=== PATIENT | male | born 1960 | race Caucasian/White ===

== ENCOUNTER 2017-06-03 11:39 | Emergency (ER) | payer BC ==
[2017-06-03 11:44] VITALS: BP 127/73
[2017-06-03] MEDS ORDERED: NEOMYCIN/POLYMYX/DEXAMETH OPHTH DROPS 5 ML RIGHTEYE STA (12:38)
[2017-06-03] MEDS ORDERED: DEXAMETHASONE 10 MG/ML VIAL PO STA (12:38)
--- NOTE | 2017-06-03 12:40 | ED Physician Documentation ---
PD HPI HEENT - Stated complaint Stated Complaint: EYE SWOLLEN/THROAT PX - Chief complaint Chief Complaint: Heent - History obtained from History obtained from: Patient - History of Present Illness Timing - onset: How many weeks ago (1) Timing - duration: Weeks (1) Timing - details: Gradual onset, Still present Location: Throat, Other (right eye) Associated symptoms: Congestion, Rhinorrhea, Cough, Other (sore throat and lost voice.) Similar symptoms before: Diagnosis (conjunctivitis) Recently seen: Not recently seen - Additional information Additional information: 57-year-old male was recently returned from a trip to [facility] he has developed a sore throat and this started about 1 week ago. He has had a bit of a cough with this and he has lost his voice. He feels this is secondary to the travel he has been doing. Yesterday he began to develop redness and irritation to the right eye. He has had this previously to the right eye with a conjunctivitis and this improved with eyedrops he was given here in the emergency department. Review of Systems Constitutional: denies: Fever Eyes: reports: Irritation. denies: Loss of vision, Decreased vision, Photophobia Ears: denies: Ear pain Nose: reports: Rhinorrhea / runny nose, Congestion Throat: reports: Sore throat Cardiac: denies: Chest pain / pressure, Palpitations Respiratory: reports: Cough. denies: Dyspnea GI: denies: Nausea, Vomiting PD PAST MEDICAL HISTORY - Past Surgical History Past Surgical History: No - Present Medications Home Medications: Ambulatory Orders Medication Instructions Recorded Confirmed Azithromycin [Zithromax] 250 mg PO DAILY #6 tablet 06/03/17 - Allergies Allergies/Adverse Reactions: Allergies Allergy/AdvReac Type Severity Reaction Status Date / Time No Known Drug Allergies Allergy Verified 06/03/17 11:44 - Social History Does the pt smoke?: No Smoking Status: Never smoker Does the pt drink ETOH?: Yes Does the pt have substance abuse?: No - Immunizations Immunizations are current?: Yes - POLST Patient has POLST: No PD ED PE NORMAL - Vitals Vital signs reviewed: Yes (normal ) - General General: No acute distress, Well developed/nourished - HEENT HEENT: Atraumatic, PERRL, EOMI, Other (There is mild central inflamation to the right TM and not the left. The right eye is inflamed without exudate. There scleral injection. ) - Neck Neck: Supple, no meningeal sign, No bony TTP - Cardiac Cardiac: RRR, No murmur - Respiratory Respiratory: No respiratory distress, Clear bilaterally - Abdomen Abdomen: Soft, Non tender - Back Back: No CVA TTP, No spinal TTP - Derm Derm: Normal color, Warm and dry, No rash - Extremities Extremities: No deformity, No edema - Neuro Neuro: No motor deficit, No sensory deficit Eye Opening: Spontaneous Motor: Obeys Commands Verbal: Oriented GCS Score: 15 - Psych Psych: Normal mood, Normal affect Results - Vitals Vitals: Vital Signs - 24 hr 06/03/17 11:41 Temperature 36.5 C Heart Rate 61 Respiratory 14 Rate Blood Pressure 127/73 O2 Saturation 98 Oxygen O2 Source Room air PD MEDICAL DECISION MAKING - ED course Complexity details: considered differential, d/w patient ED course: 57-year-old male with a sore throat and otitis also has conjunctivitis in the right eye. He is administered dexamethasone 10 mg here in the emergency department we will place him on some azithromycin and have given him some Maxitrol ophthalmic drops. Departure - Departure Disposition: 01 Home, Self Care Clinical Impression: Conjunctivitis Qualifiers: Conjunctivitis type: acute Acute conjunctivitis type: bacterial Laterality: right Qualified Code(s): H10.31 - Unspecified acute conjunctivitis, right eye Otitis media Qualifiers: Otitis media type: suppurative Chronicity: acute Laterality: right Recurrence: not specified as recurrent Spontaneous tympanic membrane rupture: without spontaneous rupture Qualified Code(s): H66.001 - Acute suppurative otitis media without spontaneous rupture of ear drum, right ear Condition: Stable Instructions: ED Otitis Media Acute Adult, ED Conjunctivitis Bacterial Follow-Up: [facility] [Provider Group] Prescriptions: Azithromycin [Zithromax] 250 mg PO DAILY #6 tablet Comments: Use the eye drops 4 times per day until symptoms resolve. (1-5 days). If symptoms worsen for any reason return here or follow up with your regular doctor.
[2017-06-03] MEDS ORDERED: DEXAMETHASONE 10 MG/ML VIAL ONE (12:48)
[2017-06-03] MEDS ORDERED: CHERRY SYRUP 10 ML UDC PO ONE (12:48)
[2017-06-03] MEDS ORDERED: NEOMYCIN/POLYMYX/DEXAMETH OPHTH DROPS 5 ML ONE (12:48)
== END 2017-06-03 12:58 | disposition home or self-care (01) ==
LOC: ED 11:39
DX: H10.31 Unspecified acute conjunctivitis, right eye (principal); H66.001 Acute suppurative otitis media without spontaneous rupture of ear drum, right ear
CPT/HCPCS: 99283; A9270; J3490

== ENCOUNTER 2020-11-05 21:28 | Emergency (ER) | payer BC ==
[2020-11-05] MEDS ORDERED: TETANUS/DIPHTHERIA/PERTUSSIS 0.5 ML SYRINGE IM ONE (21:57)
[2020-11-05] MEDS ORDERED: BUFFERED LIDOCAINE 10 ML SYRINGE SUBQ STA (21:57)
--- NOTE | 2020-11-05 21:58 | ED Physician Documentation ---
PD HPI UPPER EXT INJURY - Stated complaint Stated Complaint: LT HAND LAC - Chief complaint Chief Complaint: Laceration - History obtained from History obtained from: Patient (Right-handed gentleman not up-to-date on tetanus accidentally cut his left index finger on a knife at home just prior to arrival.) Review of Systems Constitutional: reports: Reviewed and negative Throat: reports: Reviewed and negative Cardiac: reports: Reviewed and negative PD PAST MEDICAL HISTORY - Past Surgical History Past Surgical History: No - Allergies Allergies/Adverse Reactions: Allergies Allergy/AdvReac Type Severity Reaction Status Date / Time No Known Drug Allergies Allergy Verified 11/05/20 21:45 - Social History Does the pt smoke?: No Smoking Status: Never smoker Does the pt drink ETOH?: Yes Does the pt have substance abuse?: No - Immunizations Immunizations are current?: Yes - POLST Patient has POLST: No PD ED PE NORMAL - Vitals Vital signs reviewed: Yes - General General: Alert and oriented X 3, No acute distress - Extremities Extremities: Other (2 cm laceration not involving the nailbed on the pulp of the left index finger with mild distal numbness but incomplete. Too distal for tendon laceration.) - Neuro Neuro: Alert and oriented X 3, Normal speech Results - Vitals Vitals: Vital Signs - 24 hr 11/05/20 21:43 Temperature 36.5 C Heart Rate 70 Respiratory 15 Rate Blood Pressure 139/76 H O2 Saturation 97 Oxygen O2 Source Room air Procedures - Laceration (location) L 2nd finger Length in cm: 2 Wound type: Linear, Into subcut fat Neurovascular status: Sensory intact, Motor intact, Vascular intact Anesthesia: Lidocaine 1%, With bicarb Wound preparation: Irrigated copiously NS Skin layer closure: Nylon, Interrupted, Size #-0 - enter number (5-0), Sutures - enter # (6) Other: Tetanus booster given Departure - Departure Disposition: 01 Home, Self Care Clinical Impression: Laceration Condition: Good Record reviewed to determine appropriate education?: Yes Instructions: ED Laceration Hand Comments: Come back for any signs of infection which would include: Redness, swelling, drainage, increased pain, or fevers. You can wash it soap and water. Keep it covered and moist with bacitracin ointment which is available over the counter; avoid neosporin. Follow-up with your physician in 10-14 days for suture removal. [facility] Address: [id number], [place] [address]
[2020-11-05 23:14] VITALS: BP 120/79
== END 2020-11-05 23:14 | disposition home or self-care (01) ==
LOC: ED 21:28
DX: S61.211A Laceration without foreign body of left index finger without damage to nail, initial encounter (principal); W26.0XXA Contact with knife, initial encounter; Y92.009 Unspecified place in unspecified non-institutional (private) residence as the place of occurrence of the external cause; Z23 Encounter for immunization
CPT/HCPCS: 12011; 90471; 99282; 99283